=== PATIENT | male | born 1955 | race Caucasian/White ===

== ENCOUNTER 2019-09-19 08:27 | Outpatient (CLI) | payer BC, SELFPAY ==
--- NOTE | 2019-09-24 07:50 | WPDHOLTEREM ---
Holter/Event Monitor Holter/Event Monitor Date of procedure: 09/19/19 Procedure Type: 48 hour holter monitor Indications: Palpitations Conclusion: 1. 48 hour holter monitor on 09/19/19. 2. Predominant rhythm is sinus rhythm. HR range 46-129 bpm; average HR 71 bpm. 3. There are 7 premature supraventricular complexes and 1 supraventricular couplet. No supraventricular tachycardia. 4. There are 6,773 premature ventricular complexes, 44 ventricular couplets, 5 ventricular triplets, 271 ventricular bigeminy and 1,358 ventricular trigeminy. There is one 6 beat ventricular tachycardia at 143 bpm at 12:41. 5. Underlying first degree AV block. No significant pauses greater than 2 seconds. 6. No symptoms available for correlation.
== END 2019-09-19 08:28 | disposition home or self-care (01) ==
PROVIDERS: PCP Internal Medicine; Visit Provider Internal Medicine Cardiovascular Disease
DX: R00.2 Palpitations (principal)
CPT/HCPCS: 93225; 93226

== ENCOUNTER 2019-10-17 14:25 | Outpatient (CLI) | payer BC, SELFPAY ==
--- NOTE | 2019-10-17 14:33 | ECHO_ITS ---
Patient Info Name: Evgeny Bueno Age: 64 years : 1955 Gender: Male Ht: 72 in Wt: 230 lbs BSA: 2.33 m2 HR: 75 bpm BP: 132 / 79 mmHg Technical Quality: Good Exam Date: 10/17/2019 2:42 PM Exam Location: [facility] Patient Status: Outpatient Admit Date: 10/17/2019 Staff Ordering Physician: Dionisio Fernandez DO Supervisor Heading: Belen Harman RDCS Attending Provider: Dionisio Fernandez DO Exam Type: CA echo doppler color flow Study Info Indications - ventricular tachycardia Complete two-dimensional, color flow and Doppler transthoracic echocardiogram is performed. Summary 1. Left ventricular chamber dimension is moderately enlarged. 2. Left ventricular systolic function is mildly reduced, estimated at 45-50%. 3. There is mildly increased left ventricular wall thickness. 4. The left ventricular diastolic function is grade I diastolic dysfunction. 5. E/e' 8 is minimally elevated. 6. Left atrial chamber dimension is mildly enlarged. 7. There is mild mitral valve regurgitation. 8. There is trace tricuspid valve regurgitation. 9. No pulmonary hypertension, estimated pulmonary arterial systolic pressure is 30 mmHg. Left Ventricle E/e' 8 is minimally elevated. Left ventricular chamber dimension is moderately enlarged. Left ventricular systolic function is mildly reduced, estimated at 45-50%. There is mildly increased left ventricular wall thickness. The left ventricular diastolic function is grade I diastolic dysfunction. Right Ventricle Right ventricular chamber dimension is normal. Right ventricular systolic function is normal. Left Atria Left atrial chamber dimension is mildly enlarged. Right Atria Right atrial chamber dimension is normal. Aortic Valve The aortic valve is trileaflet. There is no aortic valve stenosis. There is no aortic valve regurgitation. Pulmonic Valve There is no pulmonic regurgitation. Mitral Valve There is no mitral valve stenosis. There is mild mitral valve regurgitation. Tricuspid Valve There is trace tricuspid valve regurgitation. No pulmonary hypertension, estimated pulmonary arterial systolic pressure is 30 mmHg. Pericardium/Pleural There is no pericardial effusion. Inferior Vena Cava Normal inferior vena cava with >50% collapse upon inspiration consistent with normal right atrial pressure, 5 mmHg. Aorta The aortic root size at the sinus of Valsalva is normal. Left Ventricular Outflow Tract Name Value Normal LVOT 2D LVOT Diameter 2.1 cm LVOT Doppler LVOT Peak Gradient 5 mmHg LVOT Mean Gradient 3 mmHg LVOT VTI 23 cm LVOT VTI/AV VTI Ratio 0.9 LVOT Stroke Volume 76 ml LVOT CO 18.6 l/min LVOT CI 8.0 l/min/m2 Pulmonic Valve Name Value Normal P
== END 2019-10-17 14:26 | disposition home or self-care (01) ==
PROVIDERS: PCP Internal Medicine; Visit Provider Internal Medicine Cardiovascular Disease
DX: I47.2 Ventricular tachycardia (principal); I34.0 Nonrheumatic mitral (valve) insufficiency
CPT/HCPCS: 93306

== ENCOUNTER → 2020-12-08 00:19 | Outpatient (CLI) | payer MEDICARE, OTHER, SELFPAY ==
[2020-12-08 17:04] LABS: SARS-CoV-2 RNA PCR Negative
== END ==
PROVIDERS: PCP Internal Medicine; Visit Provider Internal Medicine Critical Care Medicine
DX: R68.89 Other general symptoms and signs (principal); Z20.822 Contact with and (suspected) exposure to COVID-19
CPT/HCPCS: C9803; U0003; U0005

== ENCOUNTER 2020-12-10 07:56 | Outpatient (CLI) | payer MEDICARE, OTHER, SELFPAY ==
[2020-12-29 12:29] VITALS: BMI 33.8
--- NOTE | 2020-12-29 12:29 | WPDSLEEPSTUD ---
Sleep Study Date of Study: 12/10/20 Ordering Provider: Dionisio Fernandez DO Interpreting Physician: Lydia Vergara MD Sleep Study Type: CPAP Titration Height: 1.78 m Weight: 107.048 kg Body Mass Index: 33.8 Neck Circumference (inches): 16.5 [place]: 2 Reason for Sleep Study obstructive sleep apnea, current device is more than 5 years old Patient reported that he uses 8 cm water pressure at home Sleep History Evgeny Bueno is a 65 year old man who has been on CPAP 8 cm for sleep apnea, and his machine is more than 5 years old. His current device is over 5 years old. There is a family history with his son using CPAP for sleep issues and heart disease. He rarely awakens from sleep feeling short of breath. He rarely awakens at night with heartburn, belching or coughing. He constantly snores and is constantly loud enough that others complain about it. He frequently has trouble sleeping with a cold. He rarely wakes up gasping for breath at night. His CPAP helps control many of these symptoms. His breathing problems at night are very rare. He does not sweat excessively at night or notices heart pounding or beating irregularly night. He rarely falls asleep during the day, he rarely falls asleep involuntarily and he rarely falls asleep while driving. He does not fall asleep while exerting physical effort. He does not have loss of muscle tone with strong emotion. He does not feel paralyzed on waking or falling asleep. He does not have vivid dreamlike scenes upon awakening or falling asleep. He does not feel afraid to go to sleep. He does not have nightmares. He does not remember his dreams. He does not have racing thoughts. He does not feel sad or depressed. He rarely has anxiety and rarely has muscular tension. He does not notice parts of his body jerking. He does not kick at night. He rarely has crawling and aching feelings in his legs. He occasionally has leg pain at night. He does not have morning jaw pain. He rarely grinds his teeth during sleep. He is not bothered by pain during the day and is not awakened by pain at night. He does not wake up feeling stiff the morning. He does not wake up with sore or achy muscles. He frequently wakes up with pain in the spine. His headaches and fatigue. He takes antacids regularly and he occasionally has fainting spells. Normal bedtime is 10:30 p.m. falling asleep within 5 minutes, typically waking once at night to urinate, returning to sleep immediately. He wakes in the morning by 8:30 a.m.. His weekend schedule is the same. He estimates getting 8 hours of sleep at night. he does not take naps in the day. A short nap might be refreshing. He is usually drowsy in the morning for 2 hours. He feels better in the afternoon compared other times a day. Habits: Former tobacco. Caffeine 2 glasses of coffee a day. No alcohol or recreational drugs. [facility] Past Medical History Medical History Chronic systolic heart failure Dependence on other enabling machines and devices Dyslipidemia Essential hypertension Fuchs' corneal dystrophy Hyperlipidemia Obesity ALICE on CPAP Surgical History Surgical History H/O cardiac catheterization H/O Spinal surgery Hx of cholecystectomy Family History Family History Father Carcinoma of colon Patient's father is Mother Carcinoma of colon Patient's mother is Social History Social History Smoking status: Former smoker Medications Home Medications Medication Instructions Recorded Confirmed Type atorvastatin 20 mg tablet 20 mg PO DAILY #90 tablet 08/19/19 11/16/20 Rx aspirin 81 mg tablet,delayed 81 mg PO DAILY 10/14/19 11/16/20 History release lisinopril
== END 2020-12-10 07:57 | disposition home or self-care (01) ==
LOC: ANHCSM 07:56
PROVIDERS: PCP Internal Medicine; Visit Provider Internal Medicine Cardiovascular Disease
DX: G47.33 Obstructive sleep apnea (adult) (pediatric) (principal); Z99.89 Dependence on other enabling machines and devices
CPT/HCPCS: 95811

== ENCOUNTER 2022-03-13 14:26 | Outpatient (CLI) | payer MEDICARE, OTHER, SELFPAY ==
--- NOTE | 2022-03-13 14:32 | ECHO_ITS ---
Patient Info Name: Evgeny Bueno Age: 67 years : 1955 Gender: Male Ht: 71 in Wt: 230 lbs BSA: 2.32 m2 HR: 74 bpm BP: 116 / 67 mmHg Technical Quality: Good Exam Date: 03/13/2022 2:56 PM Exam Location: [facility] Pul[facility] Patient Status: Outpatient Admit Date: 03/13/2022 Staff Ordering Physician: Dionisio Fernandez DO Diabetes Manager: Belen Harman RDCS Attending Provider: Dionisio Fernandez DO Referring Physician: Jim CHACON; Exam Type: CA echo doppler color flow Study Info Indications I50.22 - Chronic systolic (congestive) heart failure Complete two-dimensional, color flow and Doppler transthoracic echocardiogram is performed. Summary 1. Complete two-dimensional, color flow and Doppler transthoracic echocardiogram is performed. 2. Left ventricular chamber dimension is mildly enlarged. 3. Left ventricular systolic function is moderately reduced, estimated at 40-45%. 4. The left ventricular diastolic function is grade I diastolic dysfunction. 5. E/e' 9 is minimally elevated. 6. There is trace mitral valve regurgitation. 7. There is mild tricuspid valve regurgitation. 8. No pulmonary hypertension, estimated pulmonary arterial systolic pressure is 37 mmHg. 9. There is trace pulmonic regurgitation. Left Ventricle E/e' 9 is minimally elevated. Left ventricular chamber dimension is mildly enlarged. Left ventricular systolic function is moderately reduced, estimated at 40-45%. The left ventricular diastolic function is grade I diastolic dysfunction. Right Ventricle Right ventricular chamber dimension is normal. Right ventricular systolic function is normal. Left Atria Left atrial chamber dimension is normal. Right Atria Right atrial chamber dimension is normal. Aortic Valve The aortic valve is trileaflet. There is no aortic valve stenosis. There is no aortic valve regurgitation. Pulmonic Valve There is trace pulmonic regurgitation. Mitral Valve There is no mitral valve stenosis. There is trace mitral valve regurgitation. Tricuspid Valve There is mild tricuspid valve regurgitation. No pulmonary hypertension, estimated pulmonary arterial systolic pressure is 37 mmHg. Pericardium/Pleural There is no pericardial effusion. Inferior Vena Cava Normal inferior vena cava with >50% collapse upon inspiration consistent with normal right atrial pressure, 5 mmHg. Aorta The aortic root size at the sinus of Valsalva is normal. Left Ventricular Outflow Tract Name Value Normal LVOT 2D LVOT Diameter 2.2 cm LVOT Doppler LVOT Peak Gradient 4 mmHg LVOT Mean Gradient 2 mmHg LVOT VTI 19 cm LVOT VTI/AV VTI Ratio 0.8 LVOT Stroke Volume 76 ml LVOT CO 15.2 l/min LVOT CI 6.6 l/min/m2 Pulmonic Valve Name Value Normal
== END 2022-03-13 14:27 | disposition home or self-care (01) ==
PROVIDERS: PCP Physician Assistant Medical; Visit Provider Internal Medicine Cardiovascular Disease
DX: I50.22 Chronic systolic (congestive) heart failure (principal); I36.1 Nonrheumatic tricuspid (valve) insufficiency
CPT/HCPCS: 93306; C8929

== ENCOUNTER 2022-03-28 00:26 | Day surgery (SDC) | payer MEDICARE, OTHER, SELFPAY ==
[2022-03-17 10:05] VITALS: BMI 32.4
[2022-03-28 08:25] VITALS: BP 107/72; PULSE 81; RESP 18; TEMP 36.3; O2SAT 97; BMI 31.1
[2022-03-28] MEDS: LACTATED RINGERS 1,000 ML 150 ML IV CONT (08:34)
--- NOTE | 2022-03-28 08:59 | PM.IMHP ---
H&P: HPI History of Present Illness Date/Time: 03/28/22 08:59 Chief Complaint: History of colon polyps. Family history of colon cancer. Rectal bleeding. Narrative: This is a 67-year-old white male patient who has had intermittent rectal bleeding. Desires hemorrhoid banding. He has a history of adenomatous colon polyps in the past most recently 2016. Family history is significant both mother and father have had colon cancer. Patient presents today for screening colonoscopy. His bowel habits sometimes tend to be firm and hard. Review of Systems Review of Systems: Review of systems noncontributory. [facility] Past Medical History Medical History (Updated 03/16/22 @ 17:18 by Kanika Chavez PA-C) Anxiety Chronic systolic heart failure Dependence on other enabling machines and devices Dyslipidemia Essential hypertension Fuchs' corneal dystrophy Hyperlipidemia Obesity ALICE on CPAP Surgical History Surgical History H/O cardiac catheterization H/O Spinal surgery Hx of cholecystectomy Family History Family History Father Carcinoma of colon Patient's father is Mother Carcinoma of colon Patient's mother is Social History Social History Smoking packs per day: 1 Smoking cigarettes per day: 20.0 Years smoked: 15 Smoking pack-years: 15.00 Smoking status: Former smoker Tobacco type: cigarettes Alcohol intake: current Alcohol use details: rare occasional Substance use: never Substance use type: does not use Living arrangements: with family Spiritual care concerns: No Meds Home Medications and Allergies Home Medications Medication Instructions Recorded Confirmed Type atorvastatin 20 mg tablet 20 mg PO DAILY #90 tabs 08/19/19 03/28/22 Rx aspirin 81 mg tablet,delayed 81 mg PO DAILY 10/14/19 03/28/22 History release (Adult Aspirin Regimen) multivitamin 1 tablet PO DAILY 10/14/19 03/28/22 History sertraline 100 mg tablet 100 mg PO DAILY 10/14/19 03/28/22 History metoprolol succinate 50 mg 50 mg PO DAILY #90 tabs 12/16/19 03/17/22 Rx tablet,extended release 24 hr (Toprol XL) ascorbate calcium (vitamin C) 500 500 mg PO DAILY 08/17/20 03/28/22 History mg tablet bacitracin zinc 500 unit/gram 1 applic topical DAILY 08/17/20 03/28/22 History topical ointment (Antibiotic (bacitracin zinc)) pantoprazole 20 mg tablet,delayed 20 mg PO QAM 02/08/22 03/28/22 History release pregabalin 75 mg capsule (Lyrica) 75 mg PO TID 03/15/22 03/28/22 History tizanidine 2 mg capsule (Zanaflex) 2 mg PO QHS PRN muscle spasticity 03/15/22 03/28/22 Rx #180 caps tramadol 50 mg tablet 50 mg PO Q8H PRN pain #60 tabs 03/15/22 03/28/22 Rx lorazepam 1 mg tablet 0.5 mg PO .COMPLEX #90 tabs 03/16/22 03/28/22 Rx naproxen 500 mg tablet 500 mg PO BID 03/17/22 03/28/22 History sacubitril 24 mg-valsartan 26 mg 1 tablet PO BID #60 tabs 03/17/22 03/20/22 Rx tablet (Entresto) Allergies Allergy/AdvReac Type Severity Reaction Status Date / Time oxycodone Allergy Unknown Unknown Verified 03/28/22 08:22 carvedilol Allergy rash Verified 03/28/22 08:22 meperidine [From Demerol] AdvReac Mild bp Verified 03/28/22 08:22 MEPERIDINE HCL Allergy Mild Unknown Uncoded 03/28/22 08:22 Vital Signs Vital Signs - 24 hr 03/28/22 08:25 Temperature 97.4 F L Pulse Rate 81 Respiratory Rate 18 Blood Pressure 107/72 Pulse Oximetry 97 Oxygen Delivery Room Air Exam Narrative: Physical exam reveals patient to be alert. Vital signs stable. HEENT exam is unremarkable. Patient is anicteric. Lungs are clear to auscultation and percussion. Heart is without murmur or extra sounds. Abdominal exam bowel sounds are present soft nontender with no hepatosplenomegaly. Digital external rectal e
--- NOTE | 2022-03-28 09:27 | WPDANESEPPF ---
Anes - Initial Pre Proc Eval Procedure: Operation Date: 03/28/22 09:30 Proposed Procedures p Screening Colonoscopy - Nasir Daniel MD Date/Time: 03/28/22 09:27 Surgeon: Nasir Daniel MD Pre Op Diagnosis: family hx of colon ca, hx colon polyps Patient Data Age: 67 Gender: M Height: 1.8 m Weight: 101.5 kg Last Vital Signs Temp 97.4 F L 03/28/22 08:25 Pulse 81 03/28/22 08:25 Resp 18 03/28/22 08:25 BP 107/72 03/28/22 08:25 Pulse Ox 97 03/28/22 08:25 O2 Del Method Room Air 03/28/22 08:25 Allergies Allergy/AdvReac Type Severity Reaction Status Date / Time oxycodone Allergy Unknown Unknown Verified 03/28/22 08:22 carvedilol Allergy rash Verified 03/28/22 08:22 meperidine [From Demerol] AdvReac Mild bp Verified 03/28/22 08:22 MEPERIDINE HCL Allergy Mild Unknown Uncoded 03/28/22 08:22 Home Medications Medication Instructions Recorded Confirmed Type atorvastatin 20 mg tablet 20 mg PO DAILY #90 tabs 08/19/19 03/28/22 Rx aspirin 81 mg tablet,delayed 81 mg PO DAILY 10/14/19 03/28/22 History release (Adult Aspirin Regimen) multivitamin 1 tablet PO DAILY 10/14/19 03/28/22 History sertraline 100 mg tablet 100 mg PO DAILY 10/14/19 03/28/22 History metoprolol succinate 50 mg 50 mg PO DAILY #90 tabs 12/16/19 03/17/22 Rx tablet,extended release 24 hr (Toprol XL) ascorbate calcium (vitamin C) 500 500 mg PO DAILY 08/17/20 03/28/22 History mg tablet bacitracin zinc 500 unit/gram 1 applic topical DAILY 08/17/20 03/28/22 History topical ointment (Antibiotic (bacitracin zinc)) pantoprazole 20 mg tablet,delayed 20 mg PO QAM 02/08/22 03/28/22 History release pregabalin 75 mg capsule (Lyrica) 75 mg PO TID 03/15/22 03/28/22 History tizanidine 2 mg capsule (Zanaflex) 2 mg PO QHS PRN muscle spasticity 03/15/22 03/28/22 Rx #180 caps tramadol 50 mg tablet 50 mg PO Q8H PRN pain #60 tabs 03/15/22 03/28/22 Rx lorazepam 1 mg tablet 0.5 mg PO .COMPLEX #90 tabs 03/16/22 03/28/22 Rx naproxen 500 mg tablet 500 mg PO BID 03/17/22 03/28/22 History sacubitril 24 mg-valsartan 26 mg 1 tablet PO BID #60 tabs 03/17/22 03/20/22 Rx tablet (Entresto) Patient hx anesthesia problems: none Family hx anesthesia problems: none Results Review: All pre-operative results and documents have been reviewed as part of the pre-operative evaluation. [facility] Past Medical History Medical History (Updated 03/16/22 @ 17:18 by Kanika Chavez PA-C) Anxiety Chronic systolic heart failure Dependence on other enabling machines and devices Dyslipidemia Essential hypertension Fuchs' corneal dystrophy Hyperlipidemia Obesity ALICE on CPAP Surgical History Surgical History H/O cardiac catheterization H/O Spinal surgery Hx of cholecystectomy Family History Family History Father Carcinoma of colon Patient's father is Mother Carcinoma of colon Patient's mother is Social History Social History Smoking packs per day: 1 Smoking cigarettes per day: 20.0 Years smoked: 15 Smoking pack-years: 15.00 Smoking status: Former smoker Tobacco type: cigarettes Alcohol intake: current Alcohol use details: rare occasional Substance use: never Substance use type: does not use Living arrangements: with family Spiritual care concerns: No Anes - Eval Final PreProcedure Day of Procedure 03/28/22 09:27 Patient weight: obese Heart: regular rate and rhythm Lungs: clear to auscultation Airway: Mallampati scale class III Neurological: alert and oriented Last oral intake: >/= 8 hours ASA classification: III Emergent: no Anesthetic plan: proceed Anesthesia type and monitoring: general GIVS and standard monitoring Results Review: All pre-operative results and documents hav
[2022-03-28] MEDS: SIMETHICONE ORAL SUSPENSION 20 MG/0.3 ML 30 ML BOTTLE 0.6 ML IRRIGATION (10:28)
[2022-03-28 10:43] VITALS: BP 117/75; PULSE 73; RESP 18; O2SAT 96
[2022-03-28 10:53] VITALS: BP 101/74; PULSE 73; RESP 20; O2SAT 96
[2022-03-28 11:03] VITALS: BP 110/71; PULSE 72; RESP 18; O2SAT 100
== END 2022-03-28 11:15 | disposition home or self-care (01) ==
PROVIDERS: PCP Physician Assistant Medical; Visit Provider Internal Medicine Gastroenterology
PROC: 0DJD8ZZ Inspection of Lower Intestinal Tract, Via Natural or Artificial Opening Endoscopic (ICD-10-PCS; CPT 45378; principal; 2022-03-28 09:30)
DX: Z12.11 Encounter for screening for malignant neoplasm of colon (principal); D12.5 Benign neoplasm of sigmoid colon; Z80.0 Family history of malignant neoplasm of digestive organs; K64.8 Other hemorrhoids; K57.30 Diverticulosis of large intestine without perforation or abscess without bleeding; K62.5 Hemorrhage of anus and rectum; Z79.82 Long term (current) use of aspirin; F41.9 Anxiety disorder, unspecified; I11.0 Hypertensive heart disease with heart failure; I50.22 Chronic systolic (congestive) heart failure; E78.5 Hyperlipidemia, unspecified; G47.33 Obstructive sleep apnea (adult) (pediatric); H18.519 Endothelial corneal dystrophy, unspecified eye; Z90.49 Acquired absence of other specified parts of digestive tract; Z87.891 Personal history of nicotine dependence; E66.9 Obesity, unspecified; Z68.31 Body mass index [BMI] 31.0-31.9, adult
CPT/HCPCS: 45385; 88305; J2704; J7120

== ENCOUNTER 2023-02-28 07:06 | Outpatient (CLI) | payer MEDICARE, OTHER, SELFPAY ==
--- NOTE | 2023-02-28 07:40 | ECHO_ITS ---
Patient Info Name: Evgeny Bueno Age: 68 years : 1955 Gender: Male Ht: 67 in Wt: 238 lbs BSA: 2.31 m2 HR: 69 bpm BP: 113 / 78 mmHg Heart Rhythm: Sinus Rhythm Technical Quality: Fair Exam Date: 02/28/2023 7:54 AM Exam Location: [facility] Patient Status: Outpatient Admit Date: 02/28/2023 Staff Ordering Physician: Dionisio Fernandez DO Executive Chef Assistant: Jeanne Ortiz RDCS Attending Provider: Dionisio Fernandez DO Referring Physician: Jim CHACON; Exam Type: CA echo doppler color flow Study Info Indications I50.22 - Chronic systolic (congestive) heart failure Complete two-dimensional, color flow and Doppler transthoracic echocardiogram is performed. Strain analysis performed. Summary 1. Complete two-dimensional, color flow and Doppler transthoracic echocardiogram is performed. 2. Left ventricular chamber dimension is mildly enlarged. 3. Left ventricular systolic function is normal, estimated at 55-60%. 4. There is mild concentric increased left ventricular wall thickness. 5. The left ventricular diastolic function is grade I diastolic dysfunction. 6. E/e' 9 is minimally elevated. 7. Global longitudinal strain is abnormal at -13.1%. 8. Left atrial chamber dimension is mildly enlarged. 9. There is trace tricuspid valve regurgitation. 10. No pulmonary hypertension, estimated pulmonary arterial systolic pressure is 31 mmHg. 11. There is trace pulmonic regurgitation. Left Ventricle E/e' 9 is minimally elevated. Global longitudinal strain is abnormal at -13.1%. Left ventricular chamber dimension is mildly enlarged. Left ventricular systolic function is normal, estimated at 55-60%. There is mild concentric increased left ventricular wall thickness. The left ventricular diastolic function is grade I diastolic dysfunction. Right Ventricle Right ventricular systolic function is normal and with normal TAPSE 1.9 cm. Right ventricular chamber dimension is normal. Left Atria Left atrial chamber dimension is mildly enlarged. Right Atria Right atrial chamber dimension is normal. Aortic Valve The aortic valve is trileaflet. There is no aortic valve stenosis. There is no aortic valve regurgitation. Pulmonic Valve There is trace pulmonic regurgitation. Mitral Valve There is no mitral valve stenosis. There is no mitral valve regurgitation. Tricuspid Valve There is trace tricuspid valve regurgitation. No pulmonary hypertension, estimated pulmonary arterial systolic pressure is 31 mmHg. Pericardium/Pleural There is no pericardial effusion. Inferior Vena Cava Normal inferior vena cava with >50% collapse upon inspiration consistent with normal right atrial pressure, 5 mmHg. Aorta The aortic root size at the sinus of Valsalva is normal. Left Ventricular Outflow Tract Name Value Normal LVOT 2D LVOT Diameter 2.2 cm LVOT Doppler LVOT Peak Gradient 3 mmHg LVOT Mean Gradient 2 mmHg LVOT VTI 21 cm LVOT VTI/AV VTI Ratio 0.7 LVOT Stroke Volume 76 ml LVOT CO 4.8 l/min LVOT CI 2.1
== END 2023-02-28 07:07 | disposition home or self-care (01) ==
LOC: ANHCARD 07:06
PROVIDERS: PCP Physician Assistant Medical; Visit Provider Internal Medicine Cardiovascular Disease
DX: I50.22 Chronic systolic (congestive) heart failure (principal)
CPT/HCPCS: 93306

== ENCOUNTER → 2023-06-06 09:09 | Outpatient (CLI) | payer MEDICARE, OTHER, SELFPAY ==
--- NOTE | ~2023-06-06 | MR_ITS ---
MRI of the cervical spine Clinical History: Spondylosis Technique: Axial T2-weighted and gradient images, and sagittal T1-weighted, T2-weighted, and STIR carrie ges were acquired. COMPARISON: 12/04/2015 Findings: Axial sequences in particular degraded by motion artifact. No fracture identified. There is 2 mm anterolisthesis of C4 over C5. No suspicious bone marrow signal abnormality seen. At C2-C3, there is no disc bulge or herniation. There is mild bilateral facet arthropathy with probab le minimal bilateral neural foraminal narrowing. No central canal stenosis or neural foraminal narrow ing. At C3-C4, there is mild disc osteophyte complex. No spinal canal stenosis or cord compression. There is mild facet arthropathy bilaterally with mild bilateral neural foraminal narrowing. At C4-C5, there is minimal disc bulge. No central canal stenosis or cord compression. There is bilate ral facet arthropathy with left neural foraminal narrowing. Right neural foramen preserved. At C5-C6, there is mild disc osteophyte complex without robin canal stenosis or cord compression. The re is probable bilateral facet arthropathy with mild bilateral neural foraminal narrowing. At C6-C7, there is minimal disc bulge. No robin spinal canal stenosis or cord compression. Probable b ilateral neural foraminal narrowing with bilateral facet arthropathy, left worse than right. No abnormal signal seen in the spinal cord itself. Paravertebral soft tissues are unremarkable. Impression: Probable moderate degenerative spondylosis, as above. Axial images are degraded by motion artifact. 2 mm anterolisthesis of C4 over C5. Reviewed, dictated and finalized at [facility]. [employer] Impression: Probable moderate degenerative spondylosis, as above. Axial images are degraded by motion artifact. 2 mm anterolisthesis of C4 over C5.
== END ==
PROVIDERS: PCP Family Medicine; Visit Provider Family Medicine
DX: M47.812 Spondylosis without myelopathy or radiculopathy, cervical region (principal); M43.02 Spondylolysis, cervical region
CPT/HCPCS: 72141

== ENCOUNTER 2023-10-03 12:45 | Outpatient (RCR) | payer MEDICARE, OTHER, SELFPAY ==
--- NOTE | 2023-08-01 16:26 | PTOPEVAL1 ---
Assessment and note entered by Janene Coleman, PT Evaluation Information Assessment Status Evaluation Therapy Condition Cervicalgia, radiculopathy cervical region, abnormal posture Subjective Information -Prior history of cervical and lumbar surgery -Had pinched nerve and was provided severe doses of steroids but this did not correct issue. Went to [facility] [place] in [place]. -During neck procedure trimming of disc was rushed to hospital. This was over 10 years ago. -Sleeps in a cervical collar, was told not to ever allow a chiropractor near his neck. Was told needs a cage for his neck but would have had to fly to [place] for it at the time for the technicality aspect of the surgery. - has also had injections in the past Pt requested physical therapy for neck, Kanika Bee in August Does have numbness and tingling left 1-3 digits and at times will have it thorugh whole arm. Neck pain worsens as day goes on. Was provided hydrocodone 5/350, had prednisone in April, 2-3 weeks ago was provided an additional prednisone pack thta hasn't started yet. Does have a low dose muscle relaxer that hasn't had to use yet. Reported Pain Level Pain Score 3: Self Report Assessment PT Clinical Summary Pt presents with complaints of neck pain that appear chronic in nature. He has attempted to address his neck issues in the past witout success . Recent MRI findings show multiple levels of disc bulges with spinal cord compression, multiple levels of foraminal stenosis, and an anterolisthesis C3 on C4. Today he shows abnormal postures and spinal alignment, decreased cervical ROM, decreased thoracic ROM, and multiple areas of tight musculature. Pt will benefit greatly from physical therapy to address deficits, reduce pain, and improve overall daily life and function. Plan of Care Interventions Electrical Stimulation,Hot Pack/Cold Pack,Manual Therapy,Mechanical Traction,Neuro Re-education, Therapeutic Activities,Therapeutic Exercise, Ultrasound PT Services Indicated Yes Treatment Frequency and 1-2x weekly x 8 weeks. Duration
--- NOTE | 2023-08-01 16:33 | OPREHPOC ---
Outpatient Therapy Plan of Care This is a Multidisciplinary Plan of Care that may contain components documented by all disciplines (PT, OT, and ST.) PT Problem 1 PT Problem #1 Knowledge Deficit PT Goal 1 Goal Pt will be independent in HEP Pt will verbalize understanding of diagnosis and prognosis Target Visit 8 PT Problem 2 PT Problem #2 Pain PT Goal 1 Goal Pt will report greatest pain level at 5/10 or less to improve ADLs and activities Target Visit 8 PT Goal 2 Goal Pt will report greatest pain level at 3/10 or less to improve ADLs and activities Target Visit 16 PT Problem 3 PT Problem #3 Impaired Sensation PT Goal 1 Goal Pt will demo centralization of radicular symptoms Target Visit 8 PT Goal 2 Goal Pt will report resolution of UE radicular symptoms Target Visit 16 PT Problem 4 PT Problem #4 Impaired Range of Motion PT Goal 1 Goal Pt will demo cervical extension of 15 degrees or greater with minimal discomfort Target Visit 8 PT Goal 2 Goal Pt will demo cervical active ROM within 75% of normative values Target Visit 16 PT Goal 1 Goal Pt will demo improved forward head by 50% Target Visit 8 PT Goal 2 Goal Pt will demo improved rounded shoulders independently through an entire session without cueing Target Visit 16
--- NOTE | 2023-08-31 16:41 | PTOPPROG ---
Assessment and note entered by Janene Coleman, PT Assessment Status Progress Report Diagnosis Cervicalgia, radiculopathy cervical region, abnormal posture Subjective Information Yesterday had a headache that put me down . Has an eye issue which may have contributed to the headache. Reports sleeping with left arm extended behind to decreased the tingling Neck pain still worsens as the day goes on. Did perform prednisone pack, has seen some improvements Has been able to stop hydrocodone, is still taking tramadol Assessment PT Clinical Summary Pt has attended therapy consistently for cervicalgia and radiculopathy. He reports decreased pain numbers, improved ROM, improved muscle tone as well. Has partially met multiple goals however has not met all goals for therapy yet. As he is making good progress, he would benefit from continued therapy at this time to further his progress toward his goals. Plan of Care Interventions Electrical Stimulation,Hot Pack/Cold Pack,Manual Therapy,Mechanical Traction,Neuro Re-education, Therapeutic Activities,Therapeutic Exercise, Ultrasound PT Services Indicated Yes Treatment Frequency and 1-2x weekly x 4 weeks Duration These treatments will address the objective and functional deficits as defined above. The patient will be advanced safely and appropriately in order for the patient to progress towards his/her prior level of function. Additional exercises will be introduced and as well as a comprehensive home exercise program upon discharge, if needed, ?to ensure carryover of functional gains achieved in the clinic. This treatment plan has been reviewed and agreement upon by the patient.
--- NOTE | 2023-10-05 19:08 | PTOPPROG ---
Assessment and note entered by Janene Coleman, PT Assessment Status Progress Report Diagnosis Cervicalgia, radiculopathy cervical region, abnormal posture Subjective Information No longer sleeping in a cervical collar Had an appointment with Neuro who told him she thought the tingling may be related to adhesions in his arm, has a nerve conduction study Still taking Tramadol, muscle relaxers occasionally Is stiff and miserable today but didn't sleep well due to being unable to use his CPAP machine last couple of days Pt reports neck pain is still worst in the evening . Still tingling in fingers Pt reports when having high levels of discomfort is less frequent and is related to fatigue at the end of the day. Pt reports feeling 80% improvement overall Assessment PT Clinical Summary Pt has attended therapy consistently for his neck pain and radiculopathy. He reports feeling 80% improved in his neck pain. Reports he has been able to decreased from Hydrocodone to Tramadol. Demo's slight increase in ROM, great improvement in posture, significant improvement in pain in neck. Continued radicular symptoms but Neuro surgeon states things may be restrictions in UE. Pt cont to have deficits in ROM, strength and endurance and posture thus would benefit from continued therapy to progress strengthen and knowledge to empower patient to continue and maintain improvement independently. Plan of Care Interventions Electrical Stimulation,Hot Pack/Cold Pack,Manual Therapy,Mechanical Traction,Neuro Re-education, Therapeutic Activities,Therapeutic Exercise, Ultrasound PT Services Indicated Yes Treatment Frequency and 1-2x weekly x 8 visits Duration These treatments will address the objective and functional deficits as defined above. The patient will be advanced safely and appropriately in order for the patient to progress towards his/her prior level of function. Additional exercises will be introduced and as well as a comprehensive home exercise program upon discharge, if needed, ?to ensure carryover of functional gains achieved in the clinic. This treatment plan has been reviewed and agreement upon by the patient.
--- NOTE | 2023-11-01 09:11 | PCPTNOTE ---
Admitting Provider: Attending Provider: Kanika Chavez PA-C Patient:Evgeny Bueno Date of :1955 Patient has not returned for any further treatments since 10/03/2023. We performed a reevaluation, and decided to leave his POC open for 30 days for him to continue his HEP independently while allowing return to therapy if needed. Pt has not returned in that time thus pt will be discharged from POC for completion of goals. Thank you for referring this patient to [facility]. Please review, sign, date and return this discharge summary PREM. I have been updated about the patient's current status and I agree with discharge from the above service at this time.
== END 2023-10-30 23:59 | disposition home or self-care (01) ==
LOC: ANHHIPT 12:45
PROVIDERS: PCP Family Medicine; Visit Provider Physician Assistant Medical
DX: M47.812 Spondylosis without myelopathy or radiculopathy, cervical region (principal); M19.90 Unspecified osteoarthritis, unspecified site
CPT/HCPCS: 97012; 97014; 97110; 97112; 97140; 97162; 97750; G0283

== ENCOUNTER 2025-05-29 01:02 | Day surgery (SDC) | payer MEDICARE, OTHER, SELFPAY ==
--- OUTSIDE RECORDS SUMMARY | 2024-01-12 16:30 | XMS_ITS ---
Author Organization [facility] [employer] [place] ([address]) Address [address] [place] [address] Care Team Providers Care Motorman/Woman Name Role Phone Marycarmen Chavez Primary Care Provider Unavailab Dr. Denver Ocasio Unavailable [phone] Marycarmen Bee Unavailable Unavailable [employer], Provider Unavailable Unavailab tremaine Allergies Allergen (clinical drug ingredient) Drug/Non Drug Allergy documented on EMR Reaction Allergy Type Onset Date Status loteprednol etabonate Alrex Unknown Drug Allergy Active bepotastine Bepreve Unknown Drug Allergy Activ e REASON FOR VISIT [facility] To [facility] Conversion Encounter Medications Medication SIG (Take, Route, Frequency, Duration) Notes Start Date End Date Status traMADol HCl 50 MG 1 tab(s) orally ever y 6 hours Active Pantoprazole Sodium 40 MG 1 tab(s) orall y once a day Active Entresto 24-26 MG 1 tab(s) orally 2 ti mes a day Active Sertraline HCl 100 MG 1 tab(s) orally on ce a day Active Pregabalin 75 MG 1 cap(s) orally 2 ti mes a day Active Atorvastatin Calcium 20 MG 1 tab(s) oral ly once a day Active LORazepam 0.5 MG 1 tab(s) orally ever y 8 hours Active Metoprolol Succinate ER 50 MG 1 tab(s) orally once a day Active Encounters Encounter Location Date Provider Diagnosis [address] [place] [address] 01/12/2024 Provider [employer] Plan Of Treatment No Information Progress Notes * Evgeny BUENO TDOB:1954 (70 yo M)Acc No.[id number]:01/12/2024 Patient: Evgeny GODDARD Provider: Rafaela Valladares :1955 A ge:68 Y S ex:Male Date:01/12/2024 Address:[address] [place], [place] [id number] Pcp:Marycarmen Chavez Subjective: * Chief Complaints: * [facility] Conversion Encounter. * Medical History: * Medications: T aking Pregabalin 75 MG Capsule 1 cap(s) orally 2 times a day , Taking traMADol HCl 50 MG Tablet 1 tab(s) orally every 6 hours , Taking Pantoprazole Sodium 40 MG Tablet Delayed Release 1 tab(s) orally once a day , Taking Entresto 24-26 MG Tablet 1 tab(s) orally 2 times a day , Taking Sertraline HCl 100 MG Tablet 1 tab(s) orally once a day , Taking Atorvastatin Calcium 20 MG Tablet 1 tab(s) orally once a day , Taking LORazepam 0.5 MG Tablet 1 tab(s) orally every 8 hours , Taking Metoprolol Succinate ER 50 MG Tablet Extended Release 24 Hour 1 tab(s) orally once a day * Allergies: A lrex, Bepreve. Objective: * Vitals: Assessment: Plan: * Treatment: * Billing Information: * Visit Code: * Procedure Codes: * Electronic signature of Prov rajni CookZ-Migration on 05/29/2025 at 01:05 AM CDT Sign off status: Pending * Provider: Rafaela Valladares Date: 0 01/12/2024 Generated for Tomas rand/Heena/Ivy on: 1 01:05 AM CDT
[2025-05-18 13:28] VITALS: BMI 28.5
--- OUTSIDE RECORDS SUMMARY | 2025-05-29 01:06 | XMS_ITS | Clinical Summary ---
Author Organization [facility] Address [address] [place] [address] Care Team Providers Care Animal Skinner Name Role Phone Kanika Chavez Primary Care Provider Source Comments [facility],non-owned Affiliates and Associated Physician Practices is amultiple site organization consisting of ambulatory clinics and hospital sitesin [place], [place], [place] and [place]. This disclosure is being madepursuant to the Care Everywhere program and may not contain all information available regarding this patient. 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 Gender Identity Not on file Sexual Orientation Not on file Plan of Treatment Health Maintenance Due Date Last Done Comments COLOGUARD (AGES 45-75) - COL ON CA SCREENING 1955 COLON MONITORING 1955 COLONOSCOPY - COLON CA SCREENING 1955 CT COLONOGRAPHY - COLON CA SCREENING 1955 Colorectal Cancer Screening 1955 FIT - COLON CA SCREENING 1955 FLEX SIG - COLON CA SCREENING 1955 LIPID TESTING 1955 HEPATITIS C SCREENING 02/08/1973 DTAP/TDAP/TD VACCINES (1 - Tdap) 1974 PNEUMOCOCCAL VACCINE 50+ (1 of 1 - PCV) 2005 ZOSTER VACCINE (1 of 2) 2005 DEPRESSION SCREENING 07/30/2024 COVID-19 VACCINE (1 - 2023-2 5 season) 2025 INFLUENZA VACCINE (#1) 2025 Respiratory Syncytial Virus (RSV) Vaccine Pt: or over 60 yrs (1 - 1-dose 75+ series) 2030 HEPATITIS B VACCINE Aged Out No longe r eligible based on patient's age to complete this topic HIB VACCINE Aged Out No longer eligi ble based on patient's age to complete this topic HPV VACCINE Aged Out No longer eligi ble based on patient's age to complete this topic MENINGOCOCCAL (Group B) VACC INE SHARED DECISION-MAKING Aged Out No longer eligibl e based on patient's age to complete this topic MENINGOCOCCAL GROUPS A/C/Y/W VACCINE Aged Out No longer eligible b ased on patient's age to complete this topic Insurance MEDICARE Care Teams Animal Skinner Relationship Specialty Start Date End Date Kanika Chavez PA [address] [place] [id number] PCP - General 03/31/22
--- OUTSIDE RECORDS SUMMARY | 2025-05-29 01:06 | XMS_ITS | Encounter Summary ---
Author Organization [facility] Address [address] [place] [address] Care Team Providers Care Coke Production Heater Name Role Phone Russ Dietz MD Primary Care Provider [phone] Matilde Allen MD Unavailable [phone] Micheal Tim MD Unavailable [phone] Encounter Details Date Type Department Care Team (Late st Contact Info) Description 01/04/2021 Telephone [facility] [address] [place] [address] Doreen Coleman, RT Social History Tobacco Use Types Packs/Day Years Used Date Smoking Tobacco: Former Alcohol Use Standard Drinks/Week Comments Yes 0 (1 standard drink = 0.6 oz pur e alcohol) Sex and Gender Information Value Date Recorded Sex Assigned at Not on file 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
--- OUTSIDE RECORDS SUMMARY | 2025-05-29 01:06 | XMS_ITS | Patient Health Record ---
Author Organization [employer] [place] ([address]) Address [address] [place] [address] Care Team Providers Care Concrete Float Maker Name Role Phone Marycarmen Chavez Primary Care Provider Unavailab Dr. Denver Ocasio Unavailable [phone] Marycarmen Bee Unavailable Unavailable Allergies Allergen (clinical drug ingredient) Drug/Non Drug Allergy documented on EMR Reaction Allergy Type Onset Date Status loteprednol etabonate Alrex Unknown Drug Allergy Active bepotastine Bepreve Unknown Drug Allergy Activ e Reason For Referral No Information Medications Medication SIG (Take, Route, Frequency, Duration) Notes Start Date End Date Status TRAMADOL 50 mg 1 tab(s) orally ever y 6 hours Active Atorvastatin Calcium 20 MG 1 tab(s) oral ly once a day Active PREGABALIN 75 mg 1 cap(s) orally 2 ti mes a day Active LORazepam 0.5 MG 1 tab(s) orally ever y 8 hours Active Metoprolol Succinate ER 50 MG 1 tab(s) orally once a day Active traMADol HCl 50 MG 1 tab(s) orally ever y 6 hours Active METOPROLOL 50 mg 1 tab(s) orally once a day Active Pantoprazole Sodium 40 MG 1 tab(s) orall y once a day Active Entresto 24-26 MG 1 tab(s) orally 2 ti mes a day Active Sertraline HCl 100 MG 1 tab(s) orally on ce a day Active SERTRALINE 100 mg 1 tab(s) orally once a day Active ENTRESTO 24 mg-26 mg 1 tab(s) orally 2 t imes a day Active LORAZEPAM 0.5 mg 1 tab(s) orally ever y 8 hours Active ATORVASTATIN 20 mg 1 tab(s) orally once a day Active Pregabalin 75 MG 1 cap(s) orally 2 ti mes a day Active PANTOPRAZOLE 40 mg 1 tab(s) orally once a day Active Problems Problem Type SNOMED Code ICD Code Onset Dates Problem Status W/U Status Risk Notes Problem Carpal tunnel syndrome (22645910) Carpal tunnel syndrome, left upper limb (G56.02) Active confirmed Problem Cervical radiculopathy (46656268) Radiculopathy , cervical region (M54.12) Active confirmed Plan Of Treatment No Information Insurance Providers Payer Name Payer Address Payer Phone Subscriber Number Group Number Insured Name Patient Relationship to Insured Coverage Start Date Coverage End Date [employer] (Medicare) Attention Claims [address] [place] [address] [id number] Evgeny Bueno Self - [place] [address] [id number] Evgeny Bueno Self - patient is the insured Medical (General) History Medical History History ICD Code HLD HTN CHF Peripheral neuropathy Cervical DDD
--- OUTSIDE RECORDS SUMMARY | 2025-05-29 01:08 | XMS_ITS | Clinical Summary ---
Author Organization [facility] Address [address] [place] [address] Care Team Providers Care Neck Cutter Name Role Phone Russ Dietz MD Primary Care Provider Matilde Allen MD Unavailable [phone] Micheal Tim MD Unavailable [phone] Allergies Active Allergy Reactions Criticality Noted Date Comments Meperidine Anaphylaxis Reaction: Anaphylaxis, , Medications No known medications Active Problems Problem Noted Date Diagnosed Date Hyperlipidemia Fuchs' corneal dystrophy OU s/p DSAEK OU Pseudophakia of both eyes Hypertension Surgical History Surgery Date Site/Laterality Comments CHOLECYSTECTOMY CARPAL TUNNEL RELEASE 07/30/2011 - 07/29/2012 Right ULNAR NERVE REPAIR 07/30/2011 - 07/29/2012 CORNEAL TRANSPLANT 07/30/2013 - 07/29/2014 Bilateral 04/07/2014 OD, 03/06/[address] Micheal Tim CERVICAL SPINE SURGERY CATARACT EXTRACTION W/ INTRAOCULAR LENS IMPLANT 07/30/2012 - 07/29/2013 Bilateral 06/18/2013 OD, 09/25/[address] Micheal Hein Medical History Medical History Date Comments Hyperlipidemia DDD (degenerative disc disease), cervical Neuropathy Fuchs' corneal dystrophy OU s/p DSAEK OU Cardiomyopathy Pseudophakia of both eyes Former tobacco use Hypertension Family History Medical History Relation Name Comments Arthritis Other 1 Diabetes Other 2 parent Heart attack Other 3 grandmother Hypertension Other 4 parent Relation Name Status Comments Other 1 Other 2 Other 3 Other 4 Social History Tobacco Use Types Packs/Day Years Used Date Smoking Tobacco: Former Alcohol Use Standard Drinks/Week Comments Yes 0 (1 standard drink = 0.6 oz pur e alcohol) Sex and Gender Information Value Date Recorded Sex Assigned at Not on file 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 Gender Identity Not on file Sexual Orientation Not on file Obstetrics History Last Filed Vital Signs Vital Sign Reading Time Taken Comments Blood Pressure - - Pulse - - Temperature - - Respiratory Rate - - Oxygen Saturation - - Inhaled Oxygen Concentration - - Weight 94.3 kg (208 lb) 12/09/2020 8:09 AM CDT Height 182.9 cm (6') 12/09/2020 8:09 AM CDT Body Mass Index 28.21 12/09/2020 8:09 AM CDT Plan of Treatment Not on file Insurance [facility] MEDICARE MEDICARE MEDICARE [facility] MEDICARE MEDICARE Care Teams Neck Cutter Relationship Specialty Start Date End Date Russ Dietz MD [address] [place] [id number] PCP - General Internal Medicine 12/09/20 Matilde Allen MD [address] [place] [address] Consulting Physician Ophthalmology 12/09/20 Micheal Tim MD [address] [place] [address] Surgeon Ophthalmology 12/09/20
--- OUTSIDE RECORDS SUMMARY | 2025-05-29 01:08 | XMS_ITS | Clinical Summary ---
Author Organization [facility] Address [address] [place] [address] Phone Care Team Providers Care Tubing Mill Setter Name Role Phone Russ Dietz MD Primary Care Provider [phone] Allergies Active Allergy Reactions Criticality Noted Date Comments Meperidine Syncope Medium 03/09/2015 Oxycodone-Acetaminophen Itching Low 03/09/2015 Medications gabapentin (NEURONTIN) 300 mg capsule Take 300 mg by mouth 3 times daily. Active HYDROcodone-acet aminophen (NORCO) 10-325 mg Tablet Take 1 Tab by mouth every 4 hours as needed for Pain, Moderate. Active atorvastatin (LIPITOR) 20 mg tablet Take 20 mg by mouth Daily LATE. Active multivitamin (DAILY-KRYSTAL) tablet Take 1 Tab by mouth daily. Active aspirin (ECOTRIN EC) 81 mg Tablet, Delayed Release (E.C.) Take 81 mg by mouth daily. Active Naproxen-Esomepr azole Mag (VIMOVO) 375-20 mg Tab,IR & Delay Rel,Multiphasic Take 1 Tab by mouth 2 times daily . Active carvedilol (COREG) 12.5 mg tablet TAKE 1 TABLET BY MOUTH TWICE DAILY WITH MEALS 180 Tablet 2 05/10/2015 Active lisinopril (PRINIVIL) 10 mg tablet Take 1 Tablet (10 mg) by mouth daily NEED APPOINTMENT . 30 Tablet 0 07/20/2015 Active Active Problems Patient Care Coordination No te Formatting of this note migh t be different from the original. Lesson Instructor- Dr. Segura ([facility]) Problem Noted Date Diagnosed Date Cardiomyopathy 03/10/2015 Overview (05/06/2015): 03/10/15 small, nontransmural distal anterior and apical myocardial infarction with a small territory of apical ischemia. RV and LVglobal ventricular systolic dysfunction. LVEF 36%. Findings could suggest nonischemic cardiomyopathy. Echo- anterolateral, LV apex hypo. Global systolic function was mildly reduced. EF: 44%, normal RV. Acute chest pain 03/09/2015 CVA (cerebrovascular acciden t) associated with intracerebral hemorrhage in 201203/09/2015 DDD (degenerative disc disease), cervical 2014 DDD (degenerative disc disease), lumbar 03/09/20 HLD (hyperlipidemia) 03/09/2015 Fuchs' corneal dystrophy, s/p bilateral corneal transplants 03/09/2015 Hx of cervical spine surgery Immunizations Immunization Administration Dates Next Due Influenza Seasonal Unspecified Formulation IM Pneumococcal conjugate, unspecified formulation 09/09/2014 Social History Tobacco Use Types Packs/Day Years Used Date Smoking Tobacco: Former Cigarettes 1 8 0 02/27/1975 - 02/27/1983 Alcohol Use Standard Drinks/Week Comments No 0 (1 standard drink = 0.6 oz pur e alcohol) Sex and Gender Information Value Date Recorded Sex Assigned at Not on file Legal Sex Male 1:17 PM CDT Gender Identity Not on file Sexual Orientation Not on file Last Filed Vital Signs Vital Sign Reading Time Taken Comments Blood Pressure 117/84 03/11/2015 8:19 AM CDT Pulse 73 03/11/2015 8:19 AM CDT Temperature 36.5 C (97.7 F) 03/11/2015 7:34 AM CDT Respiratory Rate 14 03/11/2015 7:34 AM CDT Oxygen Saturation 98% 03/11/2015 8:15 AM CDT Inhaled Oxygen Concentration - - Weight 104 kg (229 lb 4.8 oz) 03/11/2015 4:20 AM CDT zeroed bed Height 180.3 cm (5' 11) 03/09/2015 8:29 PM CDT Body Mass Index 31.98 03/09/2015 8:29 PM CDT Plan of Treatment Health Maintenance Due Date Last Done Comments DTAP/TDAP/TD VACCINES (1 - Tdap) 1974 COLORECTAL SCREENING 02/14/2000 Colorectal Cancer Screening 02/14/2000 FIT-DNA Q 3 years 02/14/2000 FIT/FOBT Q 1 year 02/14/2000 Flex Sig/CT Colonography Q 5 years 02/14/2000 PNEUMOCOCCAL VACCINE 50+ YEARS (1 of 1 - PCV) 02/14/20 05 09/09/2014 ZOSTER VACCINE (1 of 2) 2005 INFLUENZA VACCINE (#1) 2025 05/09/2014 RSV VACCINE (60+ or ) (1 - 1-dose 75+ series) 2030 Insurance [employer] BLUE ACCESS/TRUE [employer] PPO Advance Directives For more information, please contact: [phone] * Full Code (Latest Code Status on File) Date Activated Date Inactivated Comments 03/09/2015 10:22 PM 03/11/2015 1:58 PM Care Teams Tubing Mill Setter Relationship Specialty Start Date End Date Russ Dietz MD [address] [place] [phone] PCP - General Internal Medicine 03/09/15
--- NOTE | 2025-05-29 13:43 | PM.HPGS ---
History of Present Illness History of Present Illness Consent: Risks, benefits, and alternatives have been discussed and questions answered. Patient agrees to proceed with procedure. 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 Impaired fasting blood sugar History of CVA (cerebrovascular accident) 2006 ALICE on CPAP Ventricular tachyarrhythmia Heart palpitations FERRERA (dyspnea on exertion) Chest pain due to psychological stress Cardiomyopathy Anxiety History of colon polyps Fuchs' corneal dystrophy Dyslipidemia Dependence on other enabling machines and devices Chronic systolic heart failure Essential hypertension Surgical History Surgical History History of elbow surgery History of carpal tunnel surgery H/O cardiac catheterization H/O Spinal surgery Hx of cholecystectomy Family History Family History Father Carcinoma of colon Patient's father is Mother Carcinoma of colon Patient's mother is Social History Social History (Updated 03/10/25 @ 13:16 by Rolf Hsieh) Social History: 03/10/25 not confident with medical forms Smoking packs per day: 1 Smoking cigarettes per day: 20.0 Years smoked: 15 Smoking pack-years: 15.00 Smoking status: Former smoker Tobacco type: cigarettes Alcohol intake: current Drinks per week: 1 Alcohol use details: rare occasional Substance use: never Substance use type: does not use Lack of Transportation: No Lack of Food: Never True Current Housing: I Have Housing Concerned About Future Housing: No Difficulty Paying Gas/Electric Bills: No Difficulty Paying for Meds: No Currently Unemployed: No Education: Associate Degree Difficulty w/ Childcare or Family Care: No Living arrangements: with family Occupation/Education: occupation Gender identity (if verbalized by the patient): Male Sexual Orientation (if Verbalized by the Patient): Straight or Heterosexual Spiritual care concerns: No Meds Home Medications and Allergies Home Medications ?Medication ?Instructions ?Recorded ?Confirmed ?Type aspirin 81 mg tablet,delayed 81 mg PO DAILY 10/14/19 05/29/25 History release (Adult Aspirin Regimen) multivitamin 1 tablet PO DAILY 10/14/19 05/29/25 History betamethasone acetate and sodium 3 mg IM .COMPLEX 03/23/23 05/18/25 History phos 6 mg/mL suspension for injection triamcinolone acetonide 40 mg/mL 60 mg IM .COMPLEX 03/23/23 05/18/25 History suspension for injection ascorbic acid (vitamin C) 1,000 mg 1,000 mg PO DAILY 01/14/25 05/29/25 History tablet celecoxib 200 mg capsule 200 mg PO DAILY #90 caps 01/14/25 05/29/25 Rx cholecalciferol (vitamin D3) 10 10 mcg PO DAILY 01/14/25 05/29/25 History mcg (400 unit) capsule coenzyme Q10 200 mg capsule (Co 200 mg PO .3xwk 01/14/25 05/18/25 History Q-10) metoprolol succinate 25 mg 25 mg PO DAILY #90 tabs 01/14/25 05/29/25 Rx tablet,extended release 24 hr pregabalin 75 mg capsule (Lyrica) 75 mg PO TID #270 caps 01/14/25 05/29/25 Rx sertraline 100 mg tablet 100 mg PO DAILY #90 tabs 01/14/25 05/29/25 Rx tizanidine 2 mg tablet 2 - 4 mg (1 - 2 x 2 mg) PO QHS PRN 01/14/25 05/18/25 Rx muscle spasticity #180 tabs tramadol 50 mg tablet 50 mg PO Q6H PRN pain #60 tabs 01/14/25 05/29/25 Rx turmeric 400 mg capsule 400 mg PO DAILY 01/14/25 05/29/25 History vitamin E (dl, acetate) 45 mg (100 45 mg PO DAILY 01/14/25 05/29/25 History unit) capsule zinc gluconate 50 mg tablet 50 mg PO DAILY 01/14/25 05/29/25 History pantoprazole 40 mg tablet,delayed 40 mg PO QAM #90 tabs 02/16/25 05/29/25 Rx release atorvastatin 40 mg tablet 40 mg PO QHS #90 tabs 03/23/25 05/29/25 Rx lorazepam 0.5 mg tablet See Rx Instructions PO .COMPLEX 04/21/25 05/29/25 Rx #270 tabs sacubitril 24 mg-valsartan 26 mg See Rx Instructions .Route 04/28/25 05/29/25 Rx tablet (Entresto) .COMPLEX #60 tabs prednisone 10 mg tablet 10 mg PO DAILY PRN inflammation in 05/18/25 05/29/25 History eyes rizatriptan 10 mg tablet 10 mg PO ONCE #9 tabs 05/18/25 05/29/25 Rx hydrocortisone-pramoxine 2.5 %-1 % 1 applic RECTAL QID PRN 05/19/25 Rx rectal cream (Analpram-HC) hemorrhoids #30 grams Allergies Allergy/AdvReac Type Severity Reaction Status Date / Time oxycodone Allergy Unknown Unknown Verified 05/29/25 12:41 carvedilol Allergy rash Verified 05/29/25 12:41 meperidine (From Demerol) AdvReac Mild bp Verified 05/29/25 12:41 Exam Const: General: comfortable and no acute distress HENMT: Face/Nose/Sinus: Normal nares present Eyes: General: appearance normal, both eyes and all related structures Neck: Neck: no JVD Resp: Auscultation: clear to auscultation bilaterally Cardio: Rate: regular rate Rhythm: regular rhythm GI: Inspection: non-distended GI Palp: Yes Soft to palpation Skin: General skin exam: normal color Extrem: General: normal to inspection Psych: Mental Status: mental status grossly normal Assessment and Plan Assessment and plan (1) Rectal Hemorrhage: Code(s): K62.5 - Hemorrhage of anus and rectum Status: Acute Assessment and Plan: irc of internal hemorrhoids
--- NOTE | 2025-05-29 13:44 | W.PM.PROC2 ---
Procedure Note - Detailed Date of Procedure 05/29/25 Pre-op Diagnosis Unspecified hemorrhoids Post-op Diagnosis Same Procedure Performed irc of internal hemorrhoids Surgeon Esau Watt MD Anesthesia None Indications internal hemorrhoids grade II Findings same Description of Procedure noted small size internal hemorrhoids grade II, no bleeding, no fissure, no lesions. Then introduced IRC probe and hemorrhoids treated for 1.5 seconds x6
== END 2025-05-29 13:19 | disposition home or self-care (01) ==
PROVIDERS: PCP Physician Assistant Medical; Referring Provider Physician Assistant Medical; Visit Provider Internal Medicine Gastroenterology
PROC: (CPT 46930; principal; 2025-05-29 13:30)
DX: K64.1 Second degree hemorrhoids (principal); E78.5 Hyperlipidemia, unspecified; I50.22 Chronic systolic (congestive) heart failure; K21.9 Gastro-esophageal reflux disease without esophagitis; R00.2 Palpitations; F41.9 Anxiety disorder, unspecified; G47.33 Obstructive sleep apnea (adult) (pediatric); M43.02 Spondylolysis, cervical region; H35.719 Central serous chorioretinopathy, unspecified eye; I47.20 Ventricular tachycardia, unspecified; H18.519 Endothelial corneal dystrophy, unspecified eye; Z79.82 Long term (current) use of aspirin; Z79.1 Long term (current) use of non-steroidal anti-inflammatories (NSAID); Z79.891 Long term (current) use of opiate analgesic; Z79.52 Long term (current) use of systemic steroids; Z99.89 Dependence on other enabling machines and devices; Z98.890 Other specified postprocedural states; Z98.61 Coronary angioplasty status; Z98.1 Arthrodesis status; Z90.49 Acquired absence of other specified parts of digestive tract; Z86.0100 Personal history of colon polyps, unspecified; Z87.891 Personal history of nicotine dependence; Z86.79 Personal history of other diseases of the circulatory system; Z80.0 Family history of malignant neoplasm of digestive organs
CPT/HCPCS: 46930